=== PATIENT | female | born 2000 | race African-American/Black ===

== ENCOUNTER 2020-04-19 21:32 | Emergency (ER) | payer OTHER ==
[~2020-04-19] VITALS: Ht 157.5 cm; Wt 57.2 kg
== END 2020-04-19 22:32 | disposition home or self-care (01) ==
LOC: ER 21:32
DX: S23.3XXA Sprain of ligaments of thoracic spine, initial encounter (principal); V49.9XXA Car occupant (driver) (passenger) injured in unspecified traffic accident, initial encounter; Y93.89 Activity, other specified; Y92.488 Other paved roadways as the place of occurrence of the external cause; Y99.8 Other external cause status

== ENCOUNTER 2021-12-05 21:28 | Outpatient (CLI) | payer OTHER ==
[2021-12-05] MEDS ORDERED: PRENATAL TABLE1 EAC3 PO (23:19)
== END 2021-12-06 10:51 | disposition home or self-care (01) ==
LOC: OBS/DEL 21:28
PROVIDERS: ATTEND Specialist
DX: O26.893 Other specified pregnancy related conditions, third trimester (principal); Z3A.37 37 weeks gestation of pregnancy

== ENCOUNTER 2021-12-08 19:52 | Outpatient (CLI) | payer OTHER ==
[~2021-12-08 19:52] MED LIST: PRENATAL TABLE1 EAC3 PO
== END 2021-12-09 13:18 | disposition home or self-care (01) ==
LOC: OBS/DEL 19:52
PROVIDERS: ATTEND Specialist
DX: O36.8130 Decreased fetal movements, third trimester, not applicable or unspecified (principal); Z3A.38 38 weeks gestation of pregnancy

== ENCOUNTER 2021-12-11 05:19 | Inpatient (IN) | payer OTHER ==
[~2021-12-11] VITALS: Ht 157.5 cm; Wt 2.7 kg
== END 2021-12-14 14:24 | disposition home or self-care (01) | DRG 788 ==
LOC: LDR 05:19 → OB/GYN 05:19
PROVIDERS: ADMIT Specialist; ATTEND Specialist
PROC: 4A1HXCZ Monitoring of Products of Conception, Cardiac Rate, External Approach (ICD-10-PCS; 2021-12-11)
PROC: 10D00Z1 Extraction of Products of Conception, Low, Open Approach (ICD-10-PCS; principal; 2021-12-11 23:45)
DX: O62.1 Secondary uterine inertia (principal); Z3A.39 39 weeks gestation of pregnancy; Z37.0 Single live birth; Z20.822 Contact with and (suspected) exposure to COVID-19

== ENCOUNTER 2023-01-25 18:17 | Emergency (ER) | payer OTHER ==
[~2023-01-25] VITALS: Ht 162.6 cm; Wt 55.3 kg
== END 2023-01-25 21:46 | disposition home or self-care (01) ==
LOC: ER 18:17
DX: O20.9 Hemorrhage in early pregnancy, unspecified (principal); Z3A.00 Weeks of gestation of pregnancy not specified

== ENCOUNTER 2023-05-01 13:39 | Emergency (ER) | payer OTHER ==
[~2023-05-01] VITALS: Ht 157.5 cm; Wt 70.3 kg
[2023-05-01] MEDS ORDERED: DUI500 PO (14:56)
[2023-05-01] MEDS ORDERED: MAXITROL EYE DRO5 ML OP (14:56)
== END 2023-05-01 15:30 | disposition home or self-care (01) ==
LOC: ER 13:39
DX: H66.90 Otitis media, unspecified, unspecified ear (principal); H10.9 Unspecified conjunctivitis

== ENCOUNTER 2024-06-10 10:11 | Emergency (ER) | payer OTHER ==
[~2024-06-10] VITALS: Ht 157.5 cm; Wt 72.6 kg
[~2024-06-10 10:11] MED LIST changes: +DUI500 PO; +MAXITROL EYE DRO5 ML OP
[2024-06-10 11:21] LABS: HEMOGLOBIN 12.9 g/dL (12.0-15.00); MEAN CELL VOLUME 88.4 fL (80.00-100.00); PLATELET COUNT 286 K/uL (150-450); RED CELL DISTRIBUTION WIDTH 13.5 % (11.5-14.5)
[2024-06-10 11:52] LABS: URINE APPEARANCE Clear; URINE BILIRRUBIN Negative (NEGATIVE); URINE BLOOD Negative; URINE COLOR Yellow; URINE GLUCOSE Negative (NEGATIVE); URINE KETONE Negative (NEGATIVE); URINE LEUKOCYTE Negative; URINE NITRATE Negative; URINE PROTEIN Negative (NEGATIVE)
[2024-06-10 11:56] LABS: URINE EPITHELIAL CELLS 40.6 uL (0.0-38.8)
[2024-06-10 12:31] LABS: CREATININE SERUM 0.61 mg/dL (0.55-1.02); GFR 120.5; POTASSIUM 3.69 mEq/L (3.5-5.1)
[2024-06-10 12:45] LABS: URINE CAST 0.15 uL (0.0-1.40)
== END 2024-06-10 16:13 | disposition home or self-care (01) ==
LOC: ER 10:13
PROVIDERS: General Practice
DX: R10.2 Pelvic and perineal pain (principal)

== ENCOUNTER 2024-09-23 09:18 | Outpatient (CLI) | payer OTHER | END 2024-09-23 09:19 | disposition home or self-care (01) | LOC: PRENATAL 09:18 | PROVIDERS: ATTEND Obstetrics & Gynecology Maternal & Fetal Medicine | DX: O35.3XX0 Maternal care for (suspected) damage to fetus from viral disease in mother, not applicable or unspecified (principal); O44.00 Complete placenta previa NOS or without hemorrhage, unspecified trimester; O34.219 Maternal care for unspecified type scar from previous cesarean delivery; Z3A.22 22 weeks gestation of pregnancy ==

== ENCOUNTER 2024-11-27 10:31 | Outpatient (CLI) | payer OTHER | END 2024-11-27 10:34 | disposition home or self-care (01) | LOC: PRENATAL 10:31 | PROVIDERS: ATTEND Obstetrics & Gynecology Maternal & Fetal Medicine | DX: O26.849 Uterine size-date discrepancy, unspecified trimester (principal); O36.8199 Decreased fetal movements, unspecified trimester, other fetus; O34.219 Maternal care for unspecified type scar from previous cesarean delivery; O99.019 Anemia complicating pregnancy, unspecified trimester; Z3A.32 32 weeks gestation of pregnancy ==

== ENCOUNTER 2025-01-11 08:15 | Inpatient (IN) | payer OTHER ==
[~2025-01-11] VITALS: Ht 157.5 cm; Wt 2.7 kg
[2025-01-11 09:50] LABS: HEMATOCRIT 34.1 % (36.0-45.00); HEMOGLOBIN 11.2 g/dL (12.0-15.00); MEAN CELL VOLUME 81.5 fL (80.00-100.00); MEAN CORPUSCULAR HEMOGLOBIN 26.8 pg (27.00-32.0); MEAN CORPUSCULAR HGB CONC 32.9 g/dl (32.0-36.0); PLATELET COUNT 237 K/uL (150-450); RED BLOOD COUNT 4.18 M/uL (4.00-6.00)
[2025-01-11 09:54] LABS: RED CELL DISTRIBUTION WIDTH 16.6 % (11.5-14.5)
[2025-01-11 09:56] LABS: URINE APPEARANCE Clear; URINE BILIRRUBIN Negative (NEGATIVE); URINE BLOOD Negative; URINE COLOR Yellow; URINE GLUCOSE Negative (NEGATIVE); URINE KETONE Negative (NEGATIVE); URINE LEUKOCYTE Small; URINE NITRATE Negative; URINE PROTEIN Negative (NEGATIVE)
[2025-01-11 09:57] LABS: URINE BACTERIA 560.4 uL (0.0-1933); URINE RBC 2.5 uL (0.0-20.8); URINE WBC 10.6 uL (0.0-23.2)
[2025-01-11 10:02] LABS: URINE CAST 0.14 uL (0.0-1.40)
[2025-01-11 10:08] LABS: INR < 0.93; PARTIAL THROMBOPLASTIN TIME 30.5 SECONDS (22.0-34.0); PROTHROMBIN TIME 9.8 SECONDS (9.0-11.5)
[2025-01-11 10:30] LABS: ALBUMIN 2.5 gm/dL (3.4-5.0); BILIRUBIN TOTAL 0.23 mg/dL (0.3-1.2); CALCIUM 8.7 mg/dL (8.5-10.1); CREATININE SERUM 0.51 mg/dL (0.55-1.02); GFR 146.93; GLOBULINA 3.8 G/DL (2.4-3.5); POTASSIUM 3.94 mEq/L (3.5-5.1); TOTAL PROTEIN 6.3 gm/dL (6.4-8.2)
[2025-01-15] MEDS ORDERED: PRENATAL + DHA1 EAC1 PO (06:05)
[2025-01-15 06:07] VITALS: BP 95/68
[2025-01-15] MEDS ORDERED: RINGERS SOLUTION,LACTATED 1,000 ML IV SCH (09:00)
[2025-01-15] MEDS ORDERED: MORPHINE SULFATE 4 MG/ML CARTRIDGE IV PRN (09:00)
[2025-01-15] MEDS ORDERED: CEFAZOLIN SODIUM 1,000 MG VIAL IV ONE (10:00)
[2025-01-15] MEDS ORDERED: OXYTOCIN 20 UNITS/1000ML RL PIGGYBAG IV ONE (10:00)
[2025-01-15] MEDS ORDERED: ERYTHROMYCIN BASE OPHT 1GM EACH TUBE OP ONE (10:00)
[2025-01-15] MEDS ORDERED: MORPHINE SULFATE 4 MG/ML VIAL IV ONE ×2 (10:35→11:50)
[2025-01-15 12:35] VITALS: BP 111/77
[2025-01-15] MEDS ORDERED: CEFAZOLIN SODIUM 1,000 MG VIAL IV SCH (14:00)
[2025-01-15 17:01] VITALS: BP 106/64
[2025-01-16] VITALS: BP 118/74
[2025-01-16 00:55] LABS: HEMATOCRIT 34.2 % (36.0-45.00); HEMOGLOBIN 11.1 g/dL (12.0-15.00); MEAN CELL VOLUME 81.9 fL (80.00-100.00); MEAN CORPUSCULAR HEMOGLOBIN 26.5 pg (27.00-32.0); MEAN CORPUSCULAR HGB CONC 32.4 g/dl (32.0-36.0); PLATELET COUNT 200 K/uL (150-450); RED BLOOD COUNT 4.18 M/uL (4.00-6.00); RED CELL DISTRIBUTION WIDTH 16.6 % (11.5-14.5)
[2025-01-16] MEDS ORDERED: SIMETHICONE 125 MG CAPSULE PO SCH (10:13)
[2025-01-16] MEDS ORDERED: OxyCODONE HCL 5 MG TABLET (ROXICODONE) PO PRN ×2 (10:15→10:30)
[2025-01-16] MEDS ORDERED: DOCUSATE SODIUM 100MG CAP PO SCH (10:21)
[2025-01-16 11:04] VITALS: BP 102/68
[2025-01-16 17:13] VITALS: BP 98/62
[2025-01-17] VITALS: BP 98/66
[2025-01-17 08:09] VITALS: BP 99/67
[2025-01-17 16:00] VITALS: BP 106/74
[2025-01-18 00:12] VITALS: BP 114/70
[2025-01-18] MEDS ORDERED: IBUPROFEN800 MG PO (08:10)
[2025-01-18 08:53] VITALS: BP 103/70
== END 2025-01-18 13:18 | disposition home or self-care (01) | DRG 788 ==
LOC: O/R 01-15 05:43 → OB/GYN 01-15 07:00
PROVIDERS: ADMIT Specialist; ATTEND Specialist
PROC: 4A1HXCZ Monitoring of Products of Conception, Cardiac Rate, External Approach (ICD-10-PCS; 2025-01-15)
PROC: 10D00Z1 Extraction of Products of Conception, Low, Open Approach (ICD-10-PCS; principal; 2025-01-15 07:00)
DX: O34.211 Maternal care for low transverse scar from previous cesarean delivery (principal); Z3A.39 39 weeks gestation of pregnancy; Z37.0 Single live birth